=== PATIENT | male | born 2000 | race Caucasian/White ===

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

== ENCOUNTER 2020-03-13 12:22 | Outpatient (CLI) | payer BC | END 2020-03-13 12:23 | disposition home or self-care (01) | LOC: COV 12:22 | PROVIDERS: ATTEND Family Medicine | DX: Z20.828 Contact with and (suspected) exposure to other viral communicable diseases (principal) ==

== ENCOUNTER 2022-10-27 08:00 | Outpatient (CLI) | payer BC, OTHER ==
--- NOTE | 2022-10-27 17:51 | XRAY Report ---
PROCEDURE: Foot 3 View RT INDICATIONS: CONTUSION OF RIGHT FOOT TECHNIQUE: 3 views of the foot were acquired. COMPARISON: None. FINDINGS: Bones: No fractures or dislocations. No suspicious bony lesions. Soft tissues: No suspicious soft tissue calcifications or masses. IMPRESSION: No acute bony abnormality. Reviewed by: Michlele Danielle MD on 10/27/2022 5:50 PM PDT Approved by: Michelle Danielle MD on 10/27/2022 5:50 PM PDT Station ID: [id number]
== END 2022-10-27 23:59 | disposition home or self-care (01) ==
LOC: DI.S 08:00
PROVIDERS: ATTEND Emergency Medicine
DX: S90.31XA Contusion of right foot, initial encounter (principal)

== ENCOUNTER 2023-10-26 14:00 | Outpatient (CLI) | payer OTHER ==
[2023-10-26] MEDS ORDERED: DIATRIZOATE MEGLU/DIATRIZO SOD 30 ML BOTTLE PO ONE (15:03)
[2023-10-26] MEDS ORDERED: iohexoL-300 100 ML VIAL ONE (15:03)
[2023-10-26] MEDS: iohexoL-300 100 ML VIAL IVP ONE (16:07)
[2023-10-26] MEDS: DIATRIZOATE MEGLU/DIATRIZO SOD 30 ML BOTTLE PO ONE (16:08)
--- NOTE | 2023-10-26 16:39 | CT Report ---
PROCEDURE: Abdomen/Pelvis W INDICATIONS: LLQ ABD PAIN CONTRAST: 100ml [id number] TECHNIQUE: After the administration of intravenous contrast, a CT scan of the abdomen and pelvis was performed. Images were recorded and evaluated at appropriate window settings. Reformats: coronal and sagittal. F or radiation dose reduction, the following was used: automated exposure control, adjustment of mA and /or kV according to patient size. COMPARISON: None. FINDINGS: Image quality: Diagnostic. Lower chest: Unremarkable. Liver: No solid mass. Gallbladder and biliary tree: No radiopaque stones or wall thickening. No biliary dilation. Spleen: No splenomegaly. Pancreas: No pancreatic ductal dilation. Adrenals: No adrenal nodule. Kidneys and ureters: No hydronephrosis. No renal cystic lesion which requires follow up. No solid mas s. Stomach, bowel and peritoneum: No bowel distension. No pathologic free fluid. Normal appendix. No sig nificant diverticular disease. Moderate colonic stool load. Lymph nodes: No central or retroperitoneal adenopathy. Vessels: No infrarenal aortic aneurysm. PELVIS Reproductive organs: Normal prostate. Bladder: No abnormal wall thickening, accounting for underdistention. Pelvic lymph nodes: No pelvic adenopathy by size criteria. Bones: No aggressive osseous abnormality. Other: No significant ventral or inguinal hernia. IMPRESSION: Moderate colonic stool load, without significant diverticular disease. Reviewed by: Renny Macias MD on 10/26/2023 4:38 PM PDT Approved by: Renny Macias MD on 10/26/2023 4:38 PM PDT Station ID: [id number]
== END 2023-10-26 14:01 | disposition home or self-care (01) ==
LOC: DI 14:00
PROVIDERS: ATTEND Nurse Practitioner
DX: R10.32 Left lower quadrant pain (principal); R14.0 Abdominal distension (gaseous); R12 Heartburn; Z83.79 Family history of other diseases of the digestive system
CPT/HCPCS: 74177; Q9963; Q9967

== ENCOUNTER 2023-12-22 22:17 | Outpatient (CLI) | payer OTHER | END 2023-12-22 23:59 | disposition EMS.NT | LOC: EMS 22:17 | DX: R05.9 Cough, unspecified (principal); T59.811A Toxic effect of smoke, accidental (unintentional), initial encounter ==